=== PATIENT | female | born 1965 | race Caucasian/White ===

== ENCOUNTER 2017-10-09 12:51 | Emergency (ER) | payer OTHER ==
[2017-10-09 13:04] VITALS: BP 127/79; TEMP 98.1; BMI 45.1
[2017-10-09] MEDS ORDERED: SODIUM CHLORIDE 1,000 ML IV STA (13:25)
--- NOTE | 2017-10-09 13:25 | ED.PDOC ---
General ED Provider: Dr. CARLITOS ROME Chief Complaint: Bite Stated Complaint: Wasp sting. 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 Hx past allergy to wasp sting. Feel mildly dyspneic with Nausea and vomiting. Inside of mouth feel hot and burningl like a scrub brush went over her mouth Time Seen by Physician: 13:05 Mode of Arrival: Walk-In Information Source: Patient Exam Limitations: No limitations Primary Care Provider: RENNY OLIVARES Nursing and Triage Documentation Reviewed and Agree: Yes Does patient meet sepsis criteria?: No System Inflammatory Response Syndrome: Not Applicable Sepsis Protocol: For patient's 13 years and over: Temp is 96.8 and below OR 101 and greater Pulse >90 BPM Resp >20/minute Acutely Altered Mental Status Are patient's symptoms suggestive of a new infection, such as: -Pneumonia -Skin, Soft Tissue -Endocarditis -UTI -Bone, Joint Infection -Implantable Device -Acute Abdominal Infection -Wound Infection -Meningitis -Blood Stream Catheter Infection -Unknown Miscellaneous Complaint Exam - Physical Examination Complaint/Exam Onset/Duration: Today Symptoms Are: Still present Timing: Constant Episodes Lasting: Seconds Initial Severity: Severe Current Severity: Moderate Location: RT Elbow Character: Burning and throbbing-aching up to arm Aggravating: Movement Alleviating: Ice Associated Signs and Symptoms: Dizziness, nausea, aching mild chest tightness Specific Findings: Area of edema posterior rt elbow region of the Olecranon- Erythrema and edematous Differential Diagnoses: Localized reaction to wasp sting Review of Systems - Review Of Systems Constitutional: Reports: No symptoms Eyes: Reports: No symptoms Ears, Nose, Mouth, Throat: Reports: No symptoms Respiratory: Reports: No symptoms Cardiac: Reports: No symptoms GI: Reports: No symptoms : Reports: No symptoms Musculoskeletal: Reports: No symptoms Skin: Reports: No symptoms (erythrema rt elbow), Bruising Neurological: Reports: No symptoms Endocrine: Reports: No symptoms Hematologic/Lymphatic: Reports: No symptoms All Other Systems: Reviewed and Negative Past Medical History - Past Medical History Previously Healthy: Yes Endocrine: Reports: None Cardiovascular: Reports: None Respiratory: Reports: None Hematological: Reports: Anemia Gastrointestinal: Reports: None Genitourinary: Reports: None Neuro/Psych: Reports: None Musculoskeletal: Reports: None Cancer: Reports: None Last Menstrual Period: unknown - Surgical History General Surgical History: Reports: None - Family History Family History: Reports: None - Social History Smoking Status: Never smoker Hx Substance Use: No Alcohol Screening: None Physical Exam - Physical Exam Appearance: Ill-appearing, Obese Ill-appearing: Mild Pain Distress: Moderate Eyes: SUDHAKAR, EOMI, Conjunctiva clear ENT: Ears normal, Nose normal, Oropharynx normal Respiratory: Airway patent, Breath sounds clear, Breath sounds equal, Respirations nonlabored Cardiovascular: RRR, Pulses normal, No rub, No murmur GI/: Soft, Nontender, No masses, Bowel sounds normal, No Organomegaly Musculoskeletal: Normal strength, ROM intact, No edema, No calf tenderness, Edema (over rt elbow site of red) Critical Care Note - Critical Care Note Total Time (mins): 60 Course - Course Hematology/Chemistry: 10/09/17 16:02 10/09/17 16:02 Orders, Labs, Meds: Lab Review 10/09/17 10/09/17 16:02 16:02 WBC 5.82 RBC 4.46 Hgb 12.3 Hct 38.6 MCV 86.5 MCH 27.6 MCHC 31.9 RDW Coeff of Renetta 12.7 Plt Count 179 Immature Gran % (Auto) 0.3 Neut % (Auto) 63.8 Lymph % (Auto) 29.6 [place] % (Auto) 5.0 Eos % (Auto) 1.0 Baso % (Auto) 0.3 Immature Gran # (Auto) 0.0 Neut # (Auto) 3.7 Lymph # (Auto) 1.7 [place] # (Auto) 0.3 L Eos # (Auto) 0.1 Baso # (Auto) 0.0 Sodium 140 Potassium 4.1 Chloride 107 Carbon Dioxide 27 Anion Gap 10.1 BUN 16 Creatinine 0.66 Estimated GFR (MDRD) 93.00 BUN/Creatinine Ratio 24.24 Glucose 110 Calcium 8.8 Total Bilirubin 0.4 AST 15 ALT 18 Alkaline Phosphatase 83 Total Protein 6.6 Albumin 3.2 L Globulin 3.4 Albumin/Globulin Ratio 0.94 Orders Category Date Time Status CBC W/ AUTO DIFF Stat LAB 10/09/17 16:02 Completed CMP [COMPREHENSIVE METABOLIC PANEL] Stat LAB 10/09/17 16:02 Completed Dexamethasone 4 mg/ml Inj [Decadron 4 mg/ml Sdv] MEDS 10/09/17 14:42 Discontinued 4 mg IVP ONCE STA Diphenhydramine Inj [Benadryl] MEDS 10/09/17 13:26 Discontinued 25 mg IVP ONCE STA Famotidine Inj [Pepcid] MEDS 10/09/17 13:27 Discontinued 20 mg IVP ONCE STA Ondansetron HCl/Pf [Zofran 4 mg/2 ml] MEDS 10/09/17 13:27 Discontinued 4 mg IVP ONCE STA Sodium Chloride 0.9% [Sodium Chloride] 1,000 ml MEDS 10/09/17 13:25 Discontinued IV BOLUS Medications Discontinued Medications Generic Name Dose Route Start Last Admin Trade Name Dejon PRN Reason Stop Dose Admin Dexamethasone Sodium Phosphate 4 mg 10/09/17 14:42 10/09/17 14:46 Decadron 4 Mg/Ml Sdv IVP 10/09/17 14:43 4 mg ONCE STA Administration Diphenhydramine HCl 25 mg 10/09/17 13:26 10/09/17 14:27 Benadryl IVP 10/09/17 13:27 25 mg ONCE STA Administration Famotidine 20 mg 10/09/17 13:27 10/09/17 14:39 Pepcid IVP 10/09/17 13:28 20 mg ONCE STA Administration Sodium Chloride 1,000 mls @ 500 mls/hr 10/09/17 13:25 10/09/17 14:39 Sodium Chloride IV 10/09/17 15:24 500 mls/hr BOLUS STA Administration Ondansetron HCl 4 mg 10/09/17 13:27 10/09/17 14:34 Zofran 4 Mg/2 Ml IVP 10/09/17 13:28 4 mg ONCE STA Administration Vital Signs: Temp Pulse Resp BP Pulse Ox 10/09/17 12:52 98.1 F 65 22 127/79 98 Departure - Departure Time of Disposition: 16:25 Disposition: HOME SELF-CARE Discharge Problem: Wasp sting, Allergic reaction Instructions: Insect Bite or Sting (ED), Anaphylaxis (ED) Condition: Good Pt referred to PMD for follow-up: Yes (PCP) IPMP verified?: No Additional Instructions: Take meds as directed Take benadry 25 mg every 6 hrs as needed Prescriptions: Dexamethasone [Dexpak] 1.5 mg PO DIRECTED 6 Days #21 tab.[email or web address] Allergies/Adverse Reactions: Allergies acetaminophen [From Lortab] Adverse Reaction (Verified 09/15/14 23:04) amoxicillin trihydrate [From Augmentin] Adverse Reaction (Verified 09/15/14 23: 04) cefaclor [From Ceclor] Adverse Reaction (Verified 09/15/14 23:04) clarithromycin [From Biaxin] Adverse Reaction (Verified 09/15/14 23:04) codeine Adverse Reaction (Verified 09/15/14 23:04) hydrocodone bitartrate [From Lortab] Adverse Reaction (Verified 09/15/14 23:04) meperidine HCl [From Demerol] Adverse Reaction (Verified 09/15/14 23:04) mirtazapine [From Remeron] Adverse Reaction (Verified 09/15/14 23:04) morphine Adverse Reaction (Verified 04/29/15 22:12) causes halucinations "makes everything go in slow oxycodone HCl [From Percocet] Adverse Reaction (Verified 04/29/15 22:21) potassium clavulanate [From Augmentin] Adverse Reaction (Verified 09/15/14 23:04 ) tetracycline Adverse Reaction (Verified 09/15/14 23:04) Home Medications: Ambulatory Orders Ascorbate Calcium [Vitamin C] 1,000 mg PO DAILY 07/19/13 Cholecalciferol (Vitamin D3) [Vitamin D3] 1,000 unit PO DAILY 07/19/13 Cyanocobalamin (Vitamin B-12) [Vitamin B-12] 1,000 mcg IM Q7D 07/19/13 Meclizine HCl [Antivert] 25 mg PO Q8H PRN 07/19/13 Alprazolam [Xanax] 0.125 mg PO BEDTIME PRN 09/16/14 Epinephrine [Epipen 2-Ismael] 0.3 mg SQ DIRECTED PRN 09/16/14 Citalopram Hydrobromide [Celexa] 20 mg PO DAILY 03/03/17 Meloxicam [Mobic] 15 mg PO DAILY 03/03/17 Dexamethasone [Dexpak] 1.5 mg PO DIRECTED 6 Days #21 tab.ds.pk 10/09/17 Disposition Discussed With: Patient, Family
[2017-10-09] MEDS ORDERED: BENADRYL IVP STA (13:26)
[2017-10-09] MEDS ORDERED: SOLU-MEDROL 125 MG IVP STA (13:26)
[2017-10-09] MEDS ORDERED: PEPCID IVP STA (13:27)
[2017-10-09] MEDS ORDERED: ZOFRAN 4 MG/2 ML IVP STA (13:27)
[2017-10-09] MEDS ORDERED: DECADRON 4 MG/ML SDV IVP STA (14:42)
== END 2017-10-09 16:52 | disposition home or self-care (01) ==
LOC: ED 12:51
DX: T63.461A Toxic effect of venom of wasps, accidental (unintentional), initial encounter (principal); R06.00 Dyspnea, unspecified; R11.2 Nausea with vomiting, unspecified; Y99.0 Civilian activity done for income or pay
CPT/HCPCS: 36415; 80053; 85025; 96375; 99285

== ENCOUNTER 2018-07-28 09:35 | Emergency (ER) ==
[2018-07-28 09:53] VITALS: BP 127/83; TEMP 98.2; BMI 45.7
--- NOTE | 2018-07-28 11:10 | ED.PDOC ---
General ED Provider: Dr. CARLITOS ROME Chief Complaint: Nausea/Vomiting Stated Complaint: NAUSEA AND VOMITING, COUGHING AND CONGESTION. Onset of illness 3 days ago with associated fever and chills. Unable to work yesterday. Attempted to work today but had persistent nausea and vomiting then developed watery diarrhea. Has had coughing as well with some chest pressure from coughing for past week. Time Seen by Physician: 09:45 Mode of Arrival: Walk-In Information Source: Patient Exam Limitations: No limitations Primary Care Provider: RENNY OLIVARES Nursing and Triage Documentation Reviewed and Agree: Yes Does patient meet sepsis criteria?: No System Inflammatory Response Syndrome: Not Applicable Sepsis Protocol: For patient's 13 years and over: Temp is 96.8 and below OR 101 and greater Pulse >90 BPM Resp >20/minute Acutely Altered Mental Status Are patient's symptoms suggestive of a new infection, such as: -Pneumonia -Skin, Soft Tissue -Endocarditis -UTI -Bone, Joint Infection -Implantable Device -Acute Abdominal Infection -Wound Infection -Meningitis -Blood Stream Catheter Infection -Unknown GI Complaint Exam - Vomiting/Diarrhea Complaint/Exam Onset/Duration: 3 days Symptoms Are: Still present Episodes of Vomiting over last 24 Hours: 4 Episodes of Diarrhea Over Last 24 Hours: 2 Initial Severity: Moderate Current Severity: Moderate Character of Vomiting: Reports: Bilious Character of Diarrhea: Reports: Watery Aggravating: Reports: Liquids, Movement Alleviating: Reports: Clear liquids Associated Signs and Symptoms: Reports: Dizziness, Light-headedness, Abdominal pain, Cramping Last Oral Intake: Earlier this AM Last Bowel Movement: This Morning Non-GI Risk Factors: Reports: None Surgical Obstruction Risk Factors: Reports: None Related Surgical History: Reports: None Abdominal Findings: Present: Other (tenderness; bowel sounds hypoactive) Kussmaul Respirations Present: No Differential Diagnoses: Viral Gastroenteritis Review of Systems - Review Of Systems Constitutional: Reports: No symptoms Eyes: Reports: No symptoms Ears, Nose, Mouth, Throat: Reports: No symptoms Respiratory: Reports: No symptoms Cardiac: Reports: No symptoms, Lightheadedness GI: Reports: Diarrhea, Nausea, Vomiting : Reports: No symptoms Musculoskeletal: Reports: No symptoms Skin: Reports: No symptoms Neurological: Reports: No symptoms Endocrine: Reports: No symptoms Hematologic/Lymphatic: Reports: No symptoms All Other Systems: Reviewed and Negative Past Medical History - Past Medical History Previously Healthy: Yes Endocrine: Reports: None Cardiovascular: Reports: None Respiratory: Reports: None Hematological: Reports: Anemia Gastrointestinal: Reports: None Genitourinary: Reports: None Neuro/Psych: Reports: None Musculoskeletal: Reports: None Cancer: Reports: None Last Menstrual Period: menopause - Surgical History General Surgical History: Reports: None - Family History Family History: Reports: None - Social History Smoking Status: Never smoker Hx Substance Use: No Alcohol Screening: None Physical Exam - Physical Exam Appearance: Ill-appearing, Obese Ill-appearing: Mild Pain Distress: None Eyes: SUDHAKAR, EOMI, Conjunctiva clear ENT: Ears normal, Nose normal, Oropharynx normal Neck: Supple Respiratory: Airway patent, Breath sounds clear, Breath sounds equal, Respirations nonlabored Cardiovascular: RRR, Pulses normal, No rub, No murmur GI/: Soft, No masses, No Organomegaly, Tender, Bowel sounds hypoactive Musculoskeletal: Normal strength, ROM intact, No edema, No calf tenderness Skin: Warm, Dry, Normal color Neurological: Sensation intact, Motor intact, Reflexes intact, Cranial nerves intact, Alert, Oriented Psychiatric: Affect appropriate, Mood appropriate Re-Evaluation - Re-Evaluation Time of Re-Evaluation: 12:30 Status: Improved Vital Signs Stable: Yes Pain Level: 0/10 Appearance: NAD Lungs: Clear Skin: Warm and Dry Neuro: Alert and Oriented X3 CV: RRR Additional Comments: Feeling much better. No N-V-D since admitted to ER Critical Care Note - Critical Care Note Total Time (mins): 0 Course - Course Hematology/Chemistry: 07/28/18 11:23 07/28/18 11:23 Orders, Labs, Meds: Lab Review 07/28/18 07/28/18 07/28/18 11:20 11:23 11:23 WBC 7.54 RBC 4.89 Hgb 13.4 Hct 42.4 MCV 86.7 MCH 27.4 MCHC 31.6 L RDW Coeff of Renetta 13.1 Plt Count 203 Immature Gran % (Auto) 0.7 Neut % (Auto) 76.9 Lymph % (Auto) 15.3 Jay % (Auto) 6.5 Eos % (Auto) 0.5 Baso % (Auto) 0.1 Immature Gran # (Auto) 0.1 Neut # (Auto) 5.8 Lymph # (Auto) 1.2 Jay # (Auto) 0.5 Eos # (Auto) 0.0 Baso # (Auto) 0.0 Sodium 140.3 Potassium 4.46 Chloride 103.2 Carbon Dioxide 31.1 H Anion Gap 10.46 BUN 14.6 Creatinine 0.74 Estimated GFR (MDRD) 82.00 BUN/Creatinine Ratio 19.72 Glucose 115.7 H Calcium 9.11 Total Bilirubin 0.54 AST 27.6 ALT 24.9 Alkaline Phosphatase 104.5 Total Protein 7.02 Albumin 4.36 Globulin 2.66 Albumin/Globulin Ratio 1.63 Influ A Molecular Assay Negative by naat Influ B Molecular Assay Negative by naat Orders Category Date Time Status CBC W/ AUTO DIFF Stat LAB 07/28/18 11:23 Completed CMP [COMPREHENSIVE METABOLIC PANEL] Stat LAB 07/28/18 11:23 Completed FLU A & B MOLECULAR [FLU A/B MOLECULAR] Stat LAB 07/28/18 11:20 Completed Ondansetron [Zofran Odt] MEDS 07/28/18 11:38 Discontinued 4 mg PO ONCE STA ABDOMEN, SERIES FLAT & UPRIGHT Stat RADS 07/28/18 11:38 Completed CHEST, 2 VIEWS PA & LAT Stat RADS 07/28/18 11:36 Completed Medications Discontinued Medications Generic Name Dose Route Start Last Admin Trade Name Freq PRN Reason Stop Dose Admin Ondansetron HCl 4 mg 07/28/18 11:38 07/28/18 11:47 Zofran Odt PO 07/28/18 11:39 4 mg ONCE STA Administration Vital Signs: Temp Pulse Resp BP Pulse Ox 07/28/18 09:36 98.2 F 68 20 127/83 94 L Departure - Departure Time of Disposition: 12:45 Disposition: HOME SELF-CARE Discharge Problem: Gastroenteritis, Chronic cough Instructions: Antitussive/Expectorant (By mouth), Gastroenteritis (ED), Acute Nausea and Vomiting (ED), Chronic Cough (ED) Condition: Good Pt referred to PMD for follow-up: Yes (5-7 days) IPMP verified?: No Additional Instructions: Off work for 24 hrs INcrease diet per tolerance If condiition worsens follow up with PCP Use claritin for seasonal allergies as needed Prescriptions: Promethazine HCl [Phenergan Tab] 25 mg PO Q8H PRN #10 tablet PRN Reason: Nausea / Vomiting Allergies/Adverse Reactions: Allergies acetaminophen [From Lortab] Adverse Reaction (Verified 07/28/18 09:45) amoxicillin trihydrate [From Augmentin] Adverse Reaction (Verified 07/28/18 09: 45) cefaclor [From Ceclor] Adverse Reaction (Verified 07/28/18 09:45) clarithromycin [From Biaxin] Adverse Reaction (Verified 07/28/18 09:45) codeine Adverse Reaction (Verified 07/28/18 09:45) hydrocodone bitartrate [From Lortab] Adverse Reaction (Verified 07/28/18 09:45) meperidine HCl [From Demerol] Adverse Reaction (Verified 07/28/18 09:45) mirtazapine [From Remeron] Adverse Reaction (Verified 07/28/18 09:45) morphine Adverse Reaction (Verified 07/28/18 09:45) causes halucinations "makes everything go in slow oxycodone HCl [From Percocet] Adverse Reaction (Verified 07/28/18 09:45) potassium clavulanate [From Augmentin] Adverse Reaction (Verified 07/28/18 09:45 ) tetracycline Adverse Reaction (Verified 07/28/18 09:45) Home Medications: Ambulatory Orders Ascorbate Calcium [Vitamin C] 1,000 mg PO DAILY 07/19/13 Cholecalciferol (Vitamin D3) [Vitamin D3] 1,000 unit PO DAILY 07/19/13 Cyanocobalamin (Vitamin B-12) [Vitamin B-12] 1,000 mcg IM Q7D 07/19/13 Meclizine HCl [Antivert] 25 mg PO Q8H PRN 07/19/13 Alprazolam [Xanax] 0.125 mg PO BEDTIME PRN 09/16/14 Epinephrine [Epipen 2-Ismael] 0.3 mg SQ DIRECTED PRN 09/16/14 Citalopram Hydrobromide [Celexa] 20 mg PO DAILY 03/03/17 Meloxicam [Mobic] 15 mg PO DAILY 03/03/17 Promethazine HCl [Phenergan Tab] 25 mg PO Q8H PRN #10 tablet 07/28/18 Disposition Discussed With: Patient
[2018-07-28] MEDS ORDERED: ZOFRAN ODT PO STA (11:38)
--- NOTE | 2018-07-28 12:33 | DI ---
EXAM: Chest two views HISTORY: Cough and congestion COMPARISON: 06/06/2014 TECHNIQUE: Two views of the chest were performed FINDINGS: Left chest port appears unchanged. The lungs are clear. There is no pleural effusion or pneumothorax. The heart is normal in size. The mediastinal contour is normal. There are no acute a bnormalities of the bones. IMPRESSION: No acute cardiopulmonary process.
--- NOTE | 2018-07-28 12:37 | DI ---
EXAM: KUB supine, KUB upright HISTORY: Diarrhea and cramping. FINDINGS: Bowel gas pattern appears grossly normal. There is no excess fecal retention or air-fluid levels. No pneumoperitoneum. IMPRESSION: 1. Bowel gas pattern within normal limits. 2. No free air.
== END 2018-07-28 12:54 | disposition home or self-care (01) ==
LOC: ED 09:35
DX: K52.9 Noninfective gastroenteritis and colitis, unspecified (principal); R05 Cough; R42 Dizziness and giddiness
CPT/HCPCS: 36415; 80053; 85025; 87502; 99283